=== PATIENT | male | born 1975 | race African-American/Black ===

== ENCOUNTER 2020-09-26 12:22 | Emergency (ER) | payer SELFPAY ==
--- NOTE | 2020-09-26 12:37 | ED.SKABFB ---
HPI - Skin/Abscess/Foreign Bdy General Chief complaint: Skin/Abscess/Foreign Body Stated complaint: Ringworm Time Seen by Provider: 09/26/20 12:37 Source: patient Mode of arrival: ambulatory Limitations: no limitations History of Present Illness HPI narrative: Rajendra Weller with no PMH of states that 10 days started to have rash that spread from lower scalp to neck; few spots on abdomen and R thigh Related Data Allergies Allergy/AdvReac Type Severity Reaction Status Date / Time iodine Allergy Unknown Verified 09/26/20 12:38 Review of Systems Review of Systems: Narrative: CONSTITUTIONAL: Denies fever, chills, sweats. EYES: Denies visual changes, redness, discharge. ENT: Denies rhinorrhea, congestion, sore throat, otalgia. CARDIOVASCULAR: Denies chest pain, palpitations, edema. RESPIRATORY: Denies dyspnea, wheezing, cough GASTROINTESTINAL: Denies abdominal pain, nausea, vomiting, diarrhea. GENITOURINARY: Denies dysuria, hematuria, abnormal discharge SKIN: Denies rash or itching. Rash in scalp base of neck, few spots on abdomen and thigh NEUROLOGIC: Denies numbness, or focal weakness. PSYCHIATRIC: Denies anxiety or depression. [facility] Past Medical History Medical History (Updated 09/26/20 @ 13:00 by Jaja Wilson CNP) No acute medical problems Social History Social History (Updated 09/26/20 @ 13:00 by Jaja Wilson CNP) Smoking packs per day: 0.5 Smoking cigarettes per day: 10.0 Smoking status: Current every day smoker Tobacco type: cigarettes Alcohol intake: current Comments At time of signature, I agree with nursing past medical, surgical, social and family history. There is no relevant family history pertinent to the presenting complaint. High blood pressure was referred to PCP Exam Narrative: Exam Narrative: GENERAL: This is a well-nourished, well-developed patient, in mild distress. HEAD: normocephalic, atraumatic. EYES: PERRL. Sclera clear/white. Vision is grossly intact. EARS: External ears normal, Hearing grossly intact. NOSE: External nose normal without nasal discharge, nares without redness, no rhinorrhea. THROAT: Mucous membranes moist, NECK: Neck supple, non-tender CARDIOVASCULAR: Regular rate and rhythm without murmurs, gallops, or rubs. RESPIRATORY: Clear to auscultation. Breath sounds equal bilaterally. No wheezes, rales, or rhonchi. GASTROINTESTINAL: Abdomen soft,, SKIN: warm, intact with circular rash base of skull and hair and on neck few similar small papular circular lesions on chest wall and right thigh NEURO: awake, alert, and oriented to person, place and time. There were no obvious focal neurologic abnormalities. Steady gait EXTREMITIES: Normal range of motion. BACK: Nontender without deformity Course Course Emergency Course: Patient here with rash and hair at base of skull and a few on chest and right thigh Started on Atarax and clotriazole with betamethasone Referral given for primary care Vital Signs Vital signs: Vital Signs Temperature 98.4 F 09/26/20 12:38 Pulse Rate 75 09/26/20 12:38 Respiratory Rate 18 09/26/20 12:38 Blood Pressure 141/84 H 09/26/20 12:38 Pulse Oximetry 100 09/26/20 12:38 Temperature 98.4 F 09/26/20 12:39 Pulse Rate 75 09/26/20 12:39 Respiratory Rate 18 09/26/20 12:39 Blood Pressure 141/84 H 09/26/20 12:39 Pulse Oximetry 100 09/26/20 12:39 MDM - Skin/Abscess/Foreign Bdy Differential Diagnosis Differential diagnosis: Likely abscess of skin or subcutaneous tissue, contact dermatitis and other Discharge Plan Discharge Clinical Impression: Ringworm Patient Disposition: Home, Self-Care Condition: Stable Instructions: Tinea Capitis (ED) Additional Instructions: Bath or shower with lukewarm water, apply ointment to areas twice a day, may use Vistaril for itching. Aware Vistaril can cause drowsiness Discussed follow-up for possible high blood pressure, , call one of the clinics t
[2020-09-26 12:38] VITALS: BP 141/84; PULSE 75; RESP 18; TEMP 36.9; O2SAT 100
[2020-09-26 12:39] VITALS: BP 141/84; PULSE 75; RESP 18; TEMP 36.9; O2SAT 100
== END 2020-09-26 12:56 | disposition home or self-care (01) ==
PROVIDERS: Emergency Provider Nurse Practitioner
DX: B35.9 Dermatophytosis, unspecified (principal); F17.210 Nicotine dependence, cigarettes, uncomplicated
CPT/HCPCS: 99203; G0463

== ENCOUNTER 2020-10-17 09:53 | Emergency (ER) | payer SELFPAY ==
[2020-10-17] VITALS (7 sets, daily range): BP systolic 150–179; BP diastolic 71–82; PULSE 79–94; RESP 15–25; TEMP 36.6; O2SAT 94–98
--- NOTE | ~2020-10-17 | XR_ITS ---
EXAMINATION: XR chest 1V portable EXAM DATE: 10/17/2020 10:31 INDICATION: Shortness of breath, wheezing. TECHNIQUE: Portable AP frontal chest x-ray was obtained. There is no prior study for comparison. FINDINGS: Lungs mildly hyperinflated. The lungs are clear. There are no pleural effusions. The card iomediastinal silhouette is within normal limits. There is no pneumothorax suspected. The bones and soft tissues are unremarkable. IMPRESSION: Mild hyperinflation. Reviewed, dictated and finalized at location A. ECT DESIGNER IMPRESSION: Mild hyperinflation.
--- NOTE | 2020-10-17 10:02 | ECG_ITS ---
Measurements Intervals [place] Rate: 74 P: 65 MI: 133 QRS: 83 QRSD: 87 T: 61 QT: 409 QTc: 456 Interpretive Statements SINUS RHYTHM BASELINE ARTIFACT- V4-V6 NORMAL ECG Electronically Signed On 10-17-2020 11:43:40 [employer]PERINTEND[employer] by Sameer Miguel D.O.
--- NOTE | 2020-10-17 10:02 | ED.SOB ---
HPI - SOB/Dyspnea General Chief Complaint: Shortness of Breath/Dyspnea Stated Complaint: diff breathing/productive cough History of Present Illness HPI Narrative: 45 yo male w/ no known medical history brought in by EMS from urgent care for respiratory distress. Sudden onset of SOB this morning. went to urgent care< they had not opened yet. EMS was called. They found him in distress with poor air movement. Breathing improved with albuterol neb. On arrival he is feeling much better. He reports one prior episode, which resolved with use of his sons inhaler. He is a long time smoker. No pain, fever, or other recen illness. Related Data Allergies Allergy/AdvReac Type Severity Reaction Status Date / Time iodine Allergy Unknown Unverified 10/17/20 13:07 Review of Systems Review of Systems: All systems reviewed & are unremarkable except as noted in HPI and below Constitutional: Constitutional: Denies fever(s) ENT: Reports dizziness Cardiovascular: Cardiovascular: Denies chest pain Respiratory: Respiratory: Reports dyspnea Gastrointestinal: Gastrointestinal: Denies abdominal pain and Denies nausea Neurologic: Denies dizziness and Denies weakness [facility] Past Medical History Medical History (Updated 10/18/20 @ 00:00 by Gregor Milton) No acute medical problems Family History Family History (Updated 10/18/20 @ 11:31 by Edwardo Strauss MD) Other Asthma Social History Social History (System 10/17/20 @ 13:07 by Arlyn Evans) Smoking packs per day: 0.5 Smoking cigarettes per day: 10.0 Smoking status: Current every day smoker Tobacco type: cigarettes Alcohol intake: current Exam Const: General: no acute distress and alert Orientation/consciousness: patient oriented x3 HENMT: Head: normal to inspection Neck: Neck: normal visual inspection Chest: Chest palpation & inspection: normal inspection of the chest Resp: Effort & Inspection: abnormal respiratory effort, not labored and tachypneic Auscultation: no rales, no rhonchi and wheezes throughout Cardio: Rate: regular rate Rhythm: regular rhythm Skin: General skin exam: normal color Rashes: no rashes Neuro: General: patient oriented x3, moves all extremities, no focal motor deficits and CN's II-XI intact bilaterally Speech: normal speech Extrem: General: normal to inspection and no edema Course Vital Signs Vital signs: Vital Signs Temperature 36.6 C 10/17/20 09:51 Pulse Rate 79 10/17/20 09:51 Respiratory Rate 25 H 10/17/20 09:51 Blood Pressure 179/82 H 10/17/20 09:51 Pulse Oximetry 98 10/17/20 09:51 Temperature 36.6 C 10/17/20 09:51 Pulse Rate 83 10/17/20 12:54 Respiratory Rate 25 H 10/17/20 12:54 Blood Pressure 150/71 H 10/17/20 12:54 Pulse Oximetry 98 10/17/20 12:54 MDM - SOB/Dyspnea MDM Narrative Medical decision making narrative: He most likely has undiagnosed asthma or COPD given his presentation and response to albuterol. I will treat as a reactive ariway flare and urge the importance of smoking cessation and obtaining a PCP. Differential Diagnosis Differential diagnosis: Likely acute exacerbation of chronic obstructive airways disease, community acquired pneumonia and asthma with exacerbation Lab Data Attestation: I reviewed the patient's lab results. Result diagrams: 10/17/20 10:27 10/17/20 10:27 Labs: Lab Results 10/17/20 10/17/20 Range/Units 10:27 10:27 WBC 11.3 H (4.5-10.0) K/mm3 RBC 4.44 L (4.6-6.20) M/mm3 Hgb 12.4 L (14.0-18.0) g/dL Hct 37.3 L (42.0-52.0) % MCV 84.0 (80-100) fl MCH 27.9 (26-34) pg MCHC 33.2 (32-36) g/dl RDW 13.6 (11.5-14.5) % Plt Count 383 H (150-375) k/mm3 MPV 9.6 (7.4-10.4) fl Immature Gran % (Auto) 0.4 (0-0.5) % Neut % (Auto) 56.0 (45.5-73.1) % Lymph % (Auto) 29.8 (18.3-44.2) % [place] % (Auto) 6.9 (2.6-8.5) % Eos % (Auto) 6.3 H (0-4.4) % Baso % (Auto)
[2020-10-17] MEDS: methylPREDNISolone SOD SUCC 125 MG VIAL IV PUSH (10:05)
[2020-10-17] MEDS: ALBUTEROL SULFATE NEB 2.5 MG/0.5 ML INH 5 MG INHALATION (10:11)
[2020-10-17] MEDS: IPRATROPIUM BR 0.02% INH SOLN 0.5 MG/2.5 ML VIAL INHALATION (10:11)
[2020-10-17 10:34] LABS: Basophils Absolute Auto 0.1 K/mm3 (0.0-0.1); Basophils Percent Auto 0.6 % (0.2-1.2); Eosinophils Absolute Auto 0.7 K/mm3 (0-0.3); Eosinophils Percent Auto 6.3 % (0-4.4); Hematocrit 37.3 % (42.0-52.0); Hemoglobin 12.4 g/dL (14.0-18.0); Immature Granulocyte Absolute 0.05 K/mm3 (0.00-0.031); Immature Granulocyte Percent A 0.4 % (0-0.5); Lymphocytes Absolute Auto 3.37 K/mm3 (0.9-3.2); Lymphocytes Percent Auto 29.8 % (18.3-44.2); Mean Corpuscular HGB Conc 33.2 g/dl (32-36); Mean Corpuscular Hemoglobin 27.9 pg (26-34); Mean Platelet Volume 9.6 fl (7.4-10.4); Monocytes Absolute Auto 0.8 K/mm3 (0.1-0.6); Monocytes Percent Auto 6.9 % (2.6-8.5); Neutrophils Absolute Auto 6.3 K/mm3 (1.3-6.7); Platelet Count Result 383 k/mm3 (150-375); Red Blood Count 4.44 M/mm3 (4.6-6.20); Red Cell Distribution Width 13.6 % (11.5-14.5); White Blood Count 11.3 K/mm3 (4.5-10.0)
[2020-10-17 10:46] LABS: Anion Gap 2 mmol/L (8-16); Blood Urea Nitrogen 11 mg/dL (9-20); Calcium 9.3 mg/dL (8.4-10.2); Carbon Dioxide 31 mmol/L (22-30); Chloride 103 mmol/L (98-107); Estimated CRCL calculation 84 ml/min; Estimated Glomerular Filt Rate > 60; Glucose 113 mg/dL (75-110); Potassium 3.5 mmol/L (3.4-5.0); Sodium 136 mmol/L (137-145)
== END 2020-10-17 12:55 | disposition home or self-care (01) ==
PROVIDERS: Emergency Provider Emergency Medicine
DX: J45.909 Unspecified asthma, uncomplicated (principal); F17.210 Nicotine dependence, cigarettes, uncomplicated
CPT/HCPCS: 36415; 71045; 80048; 85025; 93005; 94640; 96374; 99284; J2930

== ENCOUNTER 2020-10-28 14:57 | Emergency (ER) | payer SELFPAY ==
[2020-10-28 15:08] VITALS: BP 152/83; PULSE 93; RESP 18; TEMP 37.1; O2SAT 98
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
== END 2020-10-28 15:36 | disposition home or self-care (01) ==
PROVIDERS: Emergency Provider Nurse Practitioner Family
DX: B35.4 Tinea corporis (principal); B35.6 Tinea cruris; B35.0 Tinea barbae and tinea capitis; F17.210 Nicotine dependence, cigarettes, uncomplicated
CPT/HCPCS: 99213; G0463

== ENCOUNTER 2023-01-15 22:40 | Emergency (ER) | payer SELFPAY ==
[2023-01-15 22:44] VITALS: BP 125/72; PULSE 97; RESP 18; TEMP 36.8; O2SAT 97
[2023-01-16 02:35] VITALS: BP 149/78; PULSE 86; RESP 16; TEMP 36.6; O2SAT 97
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
== END 2023-01-16 03:50 | disposition home or self-care (01) ==
PROVIDERS: Emergency Provider Preventive Medicine Aerospace Medicine
DX: L03.116 Cellulitis of left lower limb (principal); F17.210 Nicotine dependence, cigarettes, uncomplicated
CPT/HCPCS: 99283

== ENCOUNTER 2023-02-04 14:36 | Emergency (ER) | payer SELFPAY ==
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
[2023-02-04 14:46] VITALS: BP 105/73; PULSE 83; RESP 18; TEMP 36.7; O2SAT 100
[2023-02-04 14:47] VITALS: BP 105/73; PULSE 83; RESP 18; TEMP 36.7; O2SAT 100
[2023-02-04] MEDS: methylPREDNISolone SOD SUCC 125 MG VIAL IM (15:04)
== END 2023-02-04 15:10 | disposition home or self-care (01) ==
PROVIDERS: Emergency Provider Nurse Practitioner
DX: B35.4 Tinea corporis (principal); F17.210 Nicotine dependence, cigarettes, uncomplicated
CPT/HCPCS: 96372; 99213; G0463; J2930

== ENCOUNTER 2023-03-01 13:12 | Emergency (ER) | payer SELFPAY ==
[2023-03-01 13:23] VITALS: BP 115/66; PULSE 84; RESP 16; TEMP 36.7; O2SAT 100
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
== END 2023-03-01 13:52 | disposition home or self-care (01) ==
PROVIDERS: Emergency Provider Nurse Practitioner
DX: L03.116 Cellulitis of left lower limb (principal); R21 Rash and other nonspecific skin eruption; F17.210 Nicotine dependence, cigarettes, uncomplicated
CPT/HCPCS: 99213; G0463

== ENCOUNTER 2023-04-25 00:33 | Emergency (ER) | payer SELFPAY ==
[2023-04-25 00:34] VITALS: BP 146/94; PULSE 96; RESP 20; TEMP 36.6; O2SAT 100
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
[2023-04-25] MEDS: hydrOXYzine HCL 25 MG TABLET PO (01:01)
== END 2023-04-25 01:19 | disposition home or self-care (01) ==
LOC: ANHED 01:12
PROVIDERS: Emergency Provider Emergency Medicine
DX: R21 Rash and other nonspecific skin eruption (principal); F17.210 Nicotine dependence, cigarettes, uncomplicated
CPT/HCPCS: 99283; A9270

== ENCOUNTER 2023-09-21 12:06 | Emergency (ER) | payer SELFPAY ==
--- NOTE | ~2023-09-21 | US_ITS ---
EXAMINATION: US venous doppler [facility] DATE: 09/21/2023 19:39 INDICATION: BLE . TECHNIQUE: Grayscale images without and with compression and Doppler images of the bilateral lower ex tremity veins were obtained. COMPARISON: None FINDINGS: The right common femoral vein, profunda (deep) femoral vein, femoral vein, popliteal vein, peroneal v ein, posterior tibial veins, vein, and greater saphenous vein are patent. The left common femoral vein, profunda (deep) femoral vein, femoral vein, popliteal vein, peroneal v ein, posterior tibial veins, vein, and greater saphenous vein are patent. IMPRESSION: Patent bilateral lower extremity veins. No evidence of deep venous thrombosis. Reviewed, dictated and finalized at location [facility]
[2023-09-21 12:24] VITALS: BP 152/74; PULSE 94; RESP 16; TEMP 36.3; O2SAT 100
--- NOTE | 2023-09-21 15:38 | PC.NURSE ---
called to recheck vital signs from waiting room, no answer
--- NOTE | 2023-09-21 18:17 | PC.NURSE ---
Pt entire body covered in scaley rash with bilateral lower extremities swollen, hot to touch, small open areas. Pt c/o itching.
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
[2023-09-21 18:40] LABS: Basophils Absolute Auto 0.1 K/mm3 (0.0-0.1); Eosinophils Absolute Auto 0.6 K/mm3 (0-0.3); Eosinophils Percent Auto 8.8 % (0-4.4); Hematocrit 31.3 % (42.0-52.0); Immature Granulocyte Absolute 0.05 K/mm3 (0.00-0.031); Immature Granulocyte Percent A 0.7 % (0-0.5); Lymphocytes Absolute Auto 1.21 K/mm3 (0.9-3.2); Lymphocytes Percent Auto 16.6 % (18.3-44.2); Mean Corpuscular HGB Conc 31.9 g/dl (32-36); Mean Corpuscular Hemoglobin 29.6 pg (26-34); Mean Corpuscular Volume 92.6 fl (80-100); Mean Platelet Volume 9.4 fl (7.4-10.4); Monocytes Absolute Auto 0.8 K/mm3 (0.1-0.6); Monocytes Percent Auto 11.3 % (2.6-8.5); Neutrophils Absolute Auto 4.5 K/mm3 (1.3-6.7); Neutrophils Percent Auto 61.6 % (45.5-73.1); Nucleated Red Blood Cells Absolute Auto 0.1 K/mm3 (0.0-0.012); Nucleated Red Blood Cells Perc 1.2 % (0.0-0.2); Platelet Count Result 539 k/mm3 (150-375); Red Blood Count 3.38 M/mm3 (4.6-6.20); Red Cell Distribution Width 17.2 % (11.5-14.5); White Blood Count 7.3 K/mm3 (4.5-10.0)
[2023-09-21 18:49] LABS: Alanine Aminotransferase 24 U/L (6-50); Albumin Level 3.8 g/dL (3.5-5.1); Alkaline Phosphatase 112 U/L (38-126); Anion Gap 10 mmol/L (8-16); Aspartate Amino Transferase 49 U/L (17-59); Bilirubin,Total 0.7 mg/dL (0.2-1.3); Blood Urea Nitrogen 4 mg/dL (9-20); Calcium 8.8 mg/dL (8.4-10.2); Carbon Dioxide 22 mmol/L (22-30); Chloride 108 mmol/L (98-107); Estimated CRCL calculation 106 ml/min; Estimated Glomerular Filt Rate > 60; Glucose 88 mg/dL (65-110); Potassium 4.1 mmol/L (3.4-5.0); Sodium 140 mmol/L (137-145)
[2023-09-21 18:51] LABS: Partial Thromboplastin Time 30.9 SECONDS (22.3-36.8)
[2023-09-21 18:57] LABS: D Dimer 3.66 ug/mL (<0.48)
--- NOTE | 2023-09-21 19:11 | PC.NURSE ---
Bilateral pedal & popiteal pulse obtain via doppler & marked.
[2023-09-21 19:30] VITALS: BP 165/99; PULSE 88; RESP 14; O2SAT 97
[2023-09-21 21:24] LABS: Appearance Urine Clear (Clear); Bacteria Urine None Seen /hpf; Bilirubin Urine Negative (Negative); Blood Urine Negative (Negative); Color Urine Yellow (Yellow); Glucose Urine UA Negative (Negative); Hyaline Casts Urine Present /lpf; Ketones Urine Trace mg/dL (Negative); Leukocyte Esterase Ur Negative LEU/UL (Negative); Need Manual Microscopic Reviewed; Nitrate Urine Negative (Negative); Protein Urine Trace mg/dL (Negative); RBC Urine 0-2 /hpf (0-2); Specific Grav Ur 1.018 (1.001-1.035); Squamous Epithelial Cell Urine None seen /hpf (Few); Urobilinogen Urine 0.2 mg/dL (<2.0); WBC Urine 0-5 /hpf
[2023-09-21 21:25] LABS: Add Urine Microscopic? YES
== END 2023-09-21 21:00 | disposition home or self-care (01) ==
PROVIDERS: Emergency Provider Physician Assistant
DX: L28.0 Lichen simplex chronicus (principal); L03.116 Cellulitis of left lower limb; F17.210 Nicotine dependence, cigarettes, uncomplicated
CPT/HCPCS: 36415; 80053; 81001; 85025; 85380; 85610; 85730; 93970; 99284

== ENCOUNTER 2023-10-20 16:14 | Emergency (ER) | payer SELFPAY ==
[2023-10-20 16:22] VITALS: BP 150/96; PULSE 104; RESP 20; TEMP 36.3; O2SAT 100
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
== END 2023-10-20 17:12 | disposition home or self-care (01) ==
PROVIDERS: Emergency Provider Registered Nurse
DX: L30.9 Dermatitis, unspecified (principal); F17.210 Nicotine dependence, cigarettes, uncomplicated; J45.909 Unspecified asthma, uncomplicated
CPT/HCPCS: 99213; G0463

== ENCOUNTER 2024-01-01 10:19 | Emergency (ER) | payer SELFPAY ==
[2024-01-01 10:31] VITALS: BP 136/65; PULSE 100; RESP 18; TEMP 37.1; O2SAT 98
[2024-01-01 10:34] VITALS: BP 136/65; PULSE 100; RESP 18; TEMP 37.1; O2SAT 98
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
== END 2024-01-01 10:53 | disposition home or self-care (01) ==
PROVIDERS: Emergency Provider Nurse Practitioner Family
DX: L30.9 Dermatitis, unspecified (principal); F17.210 Nicotine dependence, cigarettes, uncomplicated; J45.909 Unspecified asthma, uncomplicated
CPT/HCPCS: 99213; G0463

== ENCOUNTER 2024-11-20 18:32 | Emergency (ER) | payer SELFPAY ==
[2024-11-20 18:37] VITALS: BP 149/68; PULSE 103; RESP 16; TEMP 36.7; O2SAT 99
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
== END 2024-11-20 18:53 | disposition home or self-care (01) ==
PROVIDERS: Emergency Provider Nurse Practitioner Family
DX: L20.9 Atopic dermatitis, unspecified (principal); F17.210 Nicotine dependence, cigarettes, uncomplicated; J45.909 Unspecified asthma, uncomplicated
CPT/HCPCS: 99211; 99213; G0463

== ENCOUNTER 2025-01-05 17:15 | Emergency (ER) | payer SELFPAY ==
--- OUTSIDE RECORDS SUMMARY | 2025-01-05 17:17 | XMS_ITS | Clinical Summary ---
Author Organization [facility] Address [address] [place] [address] Care Team Providers Care Arts And Crafts Instructor Name Role Phone None, Physician Primary Care Provider Unavailabl e Source Comments [facility],non-owned Affiliates and Associated Physician Practices is amultiple site organization consisting of ambulatory clinics and hospital sitesin [place], [place], [place] and [place]. This disclosure is being madepursuant to the Care Everywhere program and may not contain all information available regarding this patient. Last updated 18.[facility] Allergies Active Allergy Reactions Criticality Noted Date Comments Povidone Iodine Angioedema High 09/28/2023 Social History Tobacco Use Types Packs/Day Years Used Date Smoking Tobacco: Every Day Cigarettes Tobacco Cessation:Ready to Q uit: Not Asked; Counseling Given: Not Answered Alcohol Use Standard Drinks/Week Comments Yes 0 (1 standard drink = 0.6 oz pur e alcohol) occ Sex and Gender Information Value Date Recorded Sex Assigned at Not on file Legal Sex Male 2:57 PM CDT Gender Identity Not on file Sexual Orientation Not on file Last Filed Vital Signs Vital Sign Reading Time Taken Comments Blood Pressure 151/81 09/28/2023 9:30 PM GIN OPERATOR Pulse 89 09/28/2023 9:30 PM GIN OPERATOR Temperature 36.2 C (97.1 F) 09/28/2023 7:30 PM GIN OPERATOR Respiratory Rate 16 09/28/2023 9:30 PM GIN OPERATOR Oxygen Saturation 100% 09/28/2023 9:30 PM GIN OPERATOR Inhaled Oxygen Concentration - - Weight 61.2 kg (135 lb) 09/28/2023 7:30 PM GIN OPERATOR Height 162.6 cm (5' 4 ) 09/28/2023 7:30 PM GIN OPERATOR Body Mass Index 23.17 09/28/2023 7:30 PM GIN OPERATOR Plan of Treatment Health Maintenance Due Date Last Done Comments COLOGUARD (AGES 45-75) - COL ON CA SCREENING 1973 COLON MONITORING 1973 COLONOSCOPY - COLON CA SCREENING 1973 CT COLONOGRAPHY - COLON CA SCREENING 1973 Colorectal Cancer Screening 1973 FIT - COLON CA SCREENING 1973 FLEX SIG - COLON CA SCREENING 1973 LIPID TESTING 1973 HIV SCREENING 1988 HEPATITIS C SCREENING 09/25/1991 DTAP/TDAP/TD VACCINES (1 - Tdap) 1992 HEPATITIS B VACCINE (1 of 3 - 19+ 3-dose series) 1992 PNEUMOCOCCAL VACCINE 50+ (1 of 2 - PCV) 1992 ZOSTER VACCINE (1 of 2) 2023 COVID-19 VACCINE (1 - 2023-2 5 season) 2024 DEPRESSION SCREENING 09/20/2024 INFLUENZA VACCINE (Season Ended) 2025 HIB VACCINE Aged Out No longer eligi ble based on patient's age to complete this topic HPV VACCINE Aged Out No longer eligi ble based on patient's age to complete this topic MENINGOCOCCAL (Group B) VACC INE SHARED DECISION-MAKING Aged Out No longer eligibl e based on patient's age to complete this topic MENINGOCOCCAL GROUPS A/C/Y/W VACCINE Aged Out No longer eligible b ased on patient's age to complete this topic Care Teams Arts And Crafts Instructor Relationship Specialty Start Date End Date None, Physician [address] [place] [address] PCP - General 09/28/23
--- OUTSIDE RECORDS SUMMARY | 2025-01-05 17:17 | XMS_ITS | Encounter Summary ---
Author Organization [facility] Address [address] [place] [address] Care Team Providers Care Residential Solar Consultant Name Role Phone None, Physician Primary Care Provider Unavailabl e Encounter Details Date Type Department Care Team (Late st Contact Info) Description 12/19/2020 Lab Requisition [facility] [address] [place] [address] Layton Blount MD [address] [place] [address] Social History Tobacco Use Types Packs/Day Years Used Date Smoking Tobacco: Never Assessed Sex and Gender Information Value Date Recorded Sex Assigned at Not on file Legal Sex Male 2:57 PM CDT Gender Identity Not on file Sexual Orientation Not on file documented as of this encounter Plan of Treatment Not on file documented as of this encounter Procedures Procedure Name Priority Date/Time Associated Diagnosis Comments DERMATOPATHOLOGY Routine 12/17/2020 3:33 AM CDT documented in this encounter Results * DERMATOPATHOLOGY (12/17/2020 3:33 AM CDT) Case Report Dermatopathology Report Case: [id number] Authorizing Provider: Layton Blount MD Collected: 12/17/2020 03:33 AM Ordering Location: [facility] Lab Received: 12/19/2020 06:30 AM Pathologist: Lianna Edwards MD Specimens: A) - Skin, right buttock B) - Skin, left inner thigh superiorly 4:59 PM [facility] DERMATOPATHOLOGY LABORATORY Final Diagnosis Specimen A. 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 SKIN, left inner thigh superiorly: PSORIASIFORM DERMATITIS (L44.8) (see microscopic description and comment) 4:59 PM [facility] DERMATOPATHOLOGY LABORATORY Clinical History A-B: R/o Eczema, psoriasis, CTCL 4:59 PM [facility] DERMATOPATHOLOGY LABORATORY Gross Description Specimen A: Received is one formalin filled container labeled with the patient's name and designated right buttock. The specimen consists of a shave biopsy measuring [id number] and 8x6x1 mm. Jar 0. Specimen B: Received is one formalin filled container labeled with the patient's name and designated left inner thigh superiorly. The specimen consists of a shave biopsy measuring 23i77x2 and 6x5x1 mm. Jar 0. 4:59 PM [facility] DERMATOPATHOLOGY LABORATORY Microscopic Description Specimen A. SKIN, right buttock: There is psoriasiform hyperplasia of the epidermis with focal parakeratosis and spongiosis. The granular layer is predominantly intact. There is a superficial, mainly lymphohistiocytic inflammatory infiltrate. Scattered eosinophils are seen. The hematoxylin and eosin stain is reviewed; immunohistochemical and histochemical stains are performed to further assess for infection and to characterize the inflammatory infiltrate. Grocott's methenamine silver (GMS) stain fails to highlight fungal elements in the available sections. CD3 immunostain highlights T-lymphocytes, that show a CD4:CD8 ratio of approximately 4:1. COMMENT: See comment in specimen B. Specimen B. SKIN, left inner thigh superiorly: There is psoriasiform hyperplasia of the epidermis with focal parakeratosis and spongiosis. The granular layer is predominantly intact, however focal hypogranulosis is present. There is a superficial, mainly lymphohistiocytic inflammatory infiltrate. Scattered eosinophils are seen. The hematoxylin and eosin stain is reviewed; immunohistochemical and histochemical stains are performed to further assess for infection and to characterize the inflammatory infiltrate. Grocott's methenamine silver (GMS) stain fails to highlight fungal elements in the available sections. CD3 immunostain highlights T-lymphocytes, that show a CD4:CD8 ratio of approximately 4:1. COMMENT (Specimens A and B): The histologic features are similar in specimens A and B. The histological differential diagnosis includes a chronic eczematous dermatitis; an eczematous drug eruption; and early / partially treated psoriasis, possibly with a component of contact dermatitis. The immunophenotype of the lymphocytic infiltrate makes a diagnosis of mycosis fungoides unlikely; however if there is continued clinical concern for mycosis fungoides consideration should be given to a re biopsy of a sun protected area that has not been treated for two to three weeks. 4:59 PM CDT DERMATOPATHOLOGY LABORATORY Disclaimer An external and internal positive and negative controls are appropriate for the histochemical, immunohistochemical and immunofluorescence stain(s) in this case (if any), except where stated explicitly. The performance characteristics of the stain(s) cited in this report were developed and its performance characteristic determined by the Dermatopathology Laboratory at [facility], directed by Dr. Cheo David. These tests need not be, and therefore are not, approved by the [place] Food and Drug Administration. The tests are used for clinical purposes. Billing Codes Specimen Charges Stain Charges 37863 84373 1 1 [id number] 37926 [id number] 44110 66803 23853 [id number] [id number] 1 1 1 1 1 1 1 1 1 4:59 PM CDT DERMATOPATHOLOGY LABORATORY Embedded Images 4:59 PM CDT DERMATOPATHOLOGY LABORATORY Pathology/Cytology TISSUE SPECIMEN FROM SKIN / Unknown 12/17/2020 3:33 AM CDT 12/19/2020 6:30 AM CDT Miscellaneous samples (specimen) TISSUE SPECIMEN FROM SKIN / Unknown 12/17/2020 3:33 AM CDT 12/19/2020 6:30 AM CDT us Layton Blount MD LAB - PATHOLOGY/CYTOLOGY ORD ERABLES Final Result DERMATOPATHOLOGY LABORATORY [facility] - Department of Dermatology [address] [phone] documented in this encounter Visit Diagnoses Not on filedocumented in this encounter Care Teams Residential Solar Consultant Relationship Specialty Start Date End Date None, Physician [facility] [place] [address] PCP - General 09/28/23 documented as of this encounter
--- OUTSIDE RECORDS SUMMARY | 2025-01-05 17:17 | XMS_ITS | Clinical Summary ---
Author Organization [facility] Care Team Providers Care Med Surg Rn Name Role Phone Unavailable Primary Care Provider Unavailabl e Social History Tobacco Use Types Packs/Day Years Used Date Smoking Tobacco: Never Assessed Sex and Gender Information Value Date Recorded Sex Assigned at Not on file Legal Sex Male 9:49 AM CDT Gender Identity Not on file Sexual Orientation Not on file Plan of Treatment Health Maintenance Due Date Last Done Comments Hepatitis C Virus (HCV) Screening 1973 TdaP Immunization 1973 Hepatitis B Immunization (1 of 3 - 19+ 3-dose series) 1992 Colonoscopy 2018 Colorectal Cancer Screening 2018 Cologuard 2023 Immunochemical Fecal Occult Blood 2023 Pneumococcal Immunization (5 0+ years) (1 of 1 - PCV) 2023 Zoster Immunization (1 of 2) 2023 Influenza Immunization (#1) 2024 SARS-COV-2 Immunization ( - 2023-25 season) 2024 Respiratory Syncytial Virus (RSV) Immunization (Adult) (1 - 1-dose 75+ series) 2048 Meningococcal Immunization (ACWY) Aged Out No longer eligible based on patient's age to complete this topic Pneumococcal Immunization Combined Aged Out No longer eligible based on patient's age to complete this topic Rotavirus Immunization Aged Out No lo nger eligible based on patient's age to complete this topic
[2025-01-05 17:22] VITALS: BP 139/81; PULSE 95; RESP 16; TEMP 36.8; O2SAT 100
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
== END 2025-01-05 17:42 | disposition home or self-care (01) ==
PROVIDERS: Emergency Provider Nurse Practitioner
DX: L30.9 Dermatitis, unspecified (principal); F17.210 Nicotine dependence, cigarettes, uncomplicated; J45.909 Unspecified asthma, uncomplicated
CPT/HCPCS: 99211; G0463

== ENCOUNTER 2025-02-17 14:56 | Emergency (ER) | payer SELFPAY ==
--- OUTSIDE RECORDS SUMMARY | 2025-02-17 14:58 | XMS_ITS | Encounter Summary ---
Author Organization [facility] Address [address] [place] [address] Care Team Providers Care Pulp Beater Name Role Phone None, Physician Primary Care Provider Unavailabl e Encounter Details Date Type Department Care Team (Late st Contact Info) Description 12/19/2020 Lab Requisition [facility] Lab [address] [place] [address] Layton Blount MD [address] [place] [address] Social History Tobacco Use Types Packs/Day Years [...] AM CDT) Case Report Dermatopathology Report Case: [id number] Authorizing Provider: Layton Blount MD Collected: 12/17/2020 03:33 AM Ordering Location: [facility] Lab Received: 12/19/2020 06:30 AM Pathologist: Lianna Edwards MD Specimens: A) - Skin, right buttock B) - Skin, left inner thigh superiorly 4:59 PM CDT DERMATOPATHOLOGY LABORATORY Final Diagnosis Specimen A. 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 SKIN, left inner thigh superiorly: PSORIASIFORM DERMATITIS (L44.8) (see microscopic description and comment) 4:59 PM CDT DERMATOPATHOLOGY LABORATORY at 1659 CDT Clinical History A-B: R/o Eczema, psoriasis, CTCL 4:59 PM CDT DERMATOPATHOLOGY LABORATORY Gross Description Specimen A: Received is one formalin filled container labeled with the patient's name and designated right buttock. The specimen consists of a shave biopsy measuring [id number] and 8x6x1 mm. Jar 0. Specimen B: Received is one formalin filled container labeled with the patient's name and designated left inner thigh superiorly. The specimen consists of a shave biopsy measuring [id number] and 6x5x1 mm. Jar 0. 4:59 PM CDT DERMATOPATHOLOGY LABORATORY Microscopic Description Specimen A. SKIN, [...] characteristic determined by the Dermatopathology Laboratory at [facility], directed by Dr. Cheo David. These tests need not be, and therefore are not, approved by the [place] Food and Drug Administration. The tests are used for clinical purposes. Billing Codes Specimen Charges Stain Charges 34574 37025 1 1 04307 38561 [id number] 70214 [id number] 10315 45815 47312 1 1 1 1 1 1 1 [...] PATHOLOGY/CYTOLOGY ORD ERABLES Final Result DERMATOPATHOLOGY LABORATORY [facility] - Department of Dermatology [address] [phone] documented in this encounter Visit Diagnoses Not on filedocumented in this encounter Care Teams Pulp Beater Relationship Specialty Start Date End Date None, Physician [facility] [place] [address] PCP - General 09/28/23 documented as of this encounter
--- OUTSIDE RECORDS SUMMARY | 2025-02-17 14:58 | XMS_ITS | Clinical Summary ---
Author Organization [facility] Care Team Providers Care Gas Appliance Adjuster Name Role Phone Unavailable Primary Care Provider [...]
--- OUTSIDE RECORDS SUMMARY | 2025-02-17 14:58 | XMS_ITS | Clinical Summary ---
Author Organization [facility] [employer] Address [address] [place] [address] Care Team Providers Care Solicitor Patent Name Role Phone None, Physician Primary Care Provider Unavailabl e Source Comments [facility] [employer],non-owned Affiliates and Associated Physician Practices is amultiple site organization consisting of ambulatory clinics and hospital sitesin [place], [place], [place] and [place]. This disclosure is being madepursuant to the Care Everywhere program and may not contain all information available regarding this patient. Last updated 18.[facility] [employer] Allergies Active Allergy Reactions Criticality Noted Date [...] Comments Blood Pressure 151/81 09/28/2023 9:30 PM CARPET LAYER Pulse 89 09/28/2023 9:30 PM CARPET LAYER Temperature 36.2 C (97.1 F) 09/28/2023 7:30 PM CARPET LAYER Respiratory Rate 16 09/28/2023 9:30 PM CARPET LAYER Oxygen Saturation 100% 09/28/2023 9:30 PM CARPET LAYER Inhaled Oxygen Concentration - - Weight 61.2 kg (135 lb) 09/28/2023 7:30 PM CARPET LAYER Height 162.6 cm (5' 4) 09/28/2023 7:30 PM CARPET LAYER Body Mass Index 23.17 09/28/2023 7:30 PM CARPET LAYER Plan of Treatment Health Maintenance Due Date [...] age to complete this topic Care Teams Solicitor Patent Relationship Specialty Start Date End Date None, Physician [address] [place] [address] PCP - General 09/28/23
[2025-02-17 15:03] VITALS: BP 140/71; PULSE 87; RESP 18; TEMP 36.7; O2SAT 98
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
== END 2025-02-17 15:23 | disposition home or self-care (01) ==
PROVIDERS: Emergency Provider Nurse Practitioner Family
DX: L40.9 Psoriasis, unspecified (principal); F17.210 Nicotine dependence, cigarettes, uncomplicated
CPT/HCPCS: 99213; G0463

== ENCOUNTER 2025-08-13 13:16 | Emergency (ER) | payer SELFPAY ==
[2025-08-13 13:25] VITALS: BP 150/80; PULSE 92; RESP 18; TEMP 36.9; O2SAT 100
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
== END 2025-08-13 14:28 | disposition home or self-care (01) ==
PROVIDERS: Emergency Provider Nurse Practitioner
DX: L40.9 Psoriasis, unspecified (principal); J45.909 Unspecified asthma, uncomplicated; F17.210 Nicotine dependence, cigarettes, uncomplicated
CPT/HCPCS: 99213; G0463